=== PATIENT | female | born 1990 | race Caucasian/White ===

== ENCOUNTER 2017-11-16 16:44 | Emergency (ER) | payer MEDICAID, OTHER ==
[2017-11-16 17:02] VITALS: BP 123/85; TEMP 97.7; BMI 21.7
[2017-11-16] MEDS ORDERED: ZITHROMAX PO STA (17:35)
[2017-11-16] MEDS ORDERED: TORADOL IM STA (17:48)
--- NOTE | 2017-11-16 17:49 | ED.PDOC ---
General ED Provider: Dr. FLORA SANCHEZ Chief Complaint: Urinary Problem Stated Complaint: Patient is a 27 year old female who complains of pelvic pain and discharge. Time Seen by Physician: 17:48 Information Source: Patient Exam Limitations: No limitations Primary Care Provider: ELDER HOLLY Nursing and Triage Documentation Reviewed and Agree: Yes Does patient meet sepsis criteria?: No System Inflammatory Response Syndrome: Not Applicable Sepsis Protocol: For patient's 13 years and over: Temp is 96.8 and below OR 101 and greater Pulse >90 BPM Resp >20/minute Acutely Altered Mental Status Are patient's symptoms suggestive of a new infection, such as: -Pneumonia -Skin, Soft Tissue -Endocarditis -UTI -Bone, Joint Infection -Implantable Device -Acute Abdominal Infection -Wound Infection -Meningitis -Blood Stream Catheter Infection -Unknown 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 Complaint Exam - Vaginal Bleeding Complaint/Exam Symptoms Are: Still present Timing: Constant Character: Reports: Bright red Aggravating: Reports: None Associated Signs and Symptoms: Reports: Abdominal pain, Cramping Patient Rh Status: Unknown Vulva Exam: Present: Normal Findings Vaginal Exam: Present: Normal Findings Cervical Exam: Present: Tenderness Uterine Exam: Size WNL, Tenderness Adnexal Exam: Present: Tender Differential Diagnoses: Vaginitis Review of Systems - Review Of Systems Constitutional: Reports: No symptoms Eyes: Reports: No symptoms Ears, Nose, Mouth, Throat: Reports: No symptoms Respiratory: Reports: No symptoms Cardiac: Reports: No symptoms GI: Reports: Abdominal pain (suprapubic area ) : Reports: Dysuria, Discharge, Hematuria, Urgency Musculoskeletal: Reports: No symptoms Skin: Reports: No symptoms Neurological: Reports: Anxiety, Depressed, Emotional problems Endocrine: Reports: No symptoms Hematologic/Lymphatic: Reports: No symptoms All Other Systems: Reviewed and Negative Past Medical History - Past Medical History Previously Healthy: Yes Endocrine: Reports: None Cardiovascular: Reports: None Respiratory: Reports: Asthma Hematological: Reports: None Gastrointestinal: Reports: GERD Genitourinary: Reports: Other (PID- GC) Neuro/Psych: Reports: None Musculoskeletal: Reports: None Cancer: Reports: None Last Menstrual Period: possibly now Other Pertinent Past Medical History: PID, - Surgical History General Surgical History: Reports: (x3), Other (PE tubes, Spontenous Abortions) - Family History Family History: Reports: None - Social History Smoking Status: Never smoker Hx Substance Use: No Alcohol Screening: None Physical Exam - Physical Exam Appearance: Ill-appearing Ill-appearing: Moderate Pain Distress: Severe Eyes: EMELYN, EOMI, Conjunctiva clear ENT: Ears normal, Nose normal, Oropharynx normal Neck: Supple Respiratory: Airway patent, Breath sounds clear, Breath sounds equal, Respirations nonlabored Cardiovascular: RRR, Pulses normal, No rub, No murmur GI/: Soft, Tender Musculoskeletal: Normal strength Skin: Warm, Dry Neurological: Sensation intact, Motor intact Psychiatric: Anxious Critical Care Note - Critical Care Note Total Time (mins): 0 Course - Course Orders, Labs, Meds: Lab Review 11/16/17 11/16/17 11/16/17 17:15 17:15 17:45 Urine Color Yellow Urine Clarity Cloudy Urine pH 6.0 Ur Specific [place] >=1.030 Urine Protein 2+ Urine Glucose (UA) Negative Urine Ketones Trace Urine Blood 3+ Urine Nitrite Negative Urine Bilirubin Negative Urine Urobilinogen 0.2 Ur Leukocyte Esterase 3+ Urine Microscopic RBC 10-20 Urine Microscopic WBC 20-30 Ur Squamous Epith Cells 20-30 Urine Bacteria 1+ Urine Test Negative Clue Cells (Wet Prep) None seen Trichomonas (Wet Prep) None seen Vaginal WBC None seen VELMA Preparation 11/16/17 17:45 Urine Color Urine Clarity Urine pH Ur Specific [place] Urine Protein Urine Glucose (UA) Urine Ketones Urine Blood Urine Nitrite Urine Bilirubin Urine Urobilinogen Ur Leukocyte Esterase Urine Microscopic RBC Urine Microscopic WBC Ur Squamous Epith Cells Urine Bacteria Urine Test Clue Cells (Wet Prep) Trichomonas (Wet Prep) Vaginal WBC VELMA Preparation No fungal elements Orders Category Date Time Status CHLAMYDIA/GC AMPLIFICATION Stat LAB 11/16/17 18:06 Received GENITAL CULTURE Stat LAB 11/16/17 17:45 Received VELMA PREP Stat LAB 11/16/17 17:45 Completed URINALYSIS C & S IF INDICATED Stat LAB 11/16/17 17:15 Completed URINE CULTURE Stat LAB 11/16/17 17:15 Completed URINE Stat LAB 11/16/17 17:15 Completed VIRAL CULTURE Stat LAB 11/16/17 18:06 Received WET PREP Stat LAB 11/16/17 17:45 Completed Azithromycin [Zithromax] MEDS 11/16/17 17:35 Discontinued 1,000 mg PO ONCE STA Ketorolac Tromethamine [Toradol] MEDS 11/16/17 17:48 Discontinued 60 mg IM ONCE STA Ondansetron [Zofran Odt] MEDS 11/16/17 18:04 Discontinued 4 mg PO ONCE STA Sulfamethoxazole/Trimethoprim [Bactrim Ds 800/160 mg] MEDS 11/16/17 18:46 Discontinued 1 tab PO ONCE STA Medications Discontinued Medications Generic Name Dose Route Start Last Admin Trade Name Freq PRN Reason Stop Dose Admin Azithromycin 1,000 mg 11/16/17 17:35 11/16/17 18:21 Zithromax PO 11/16/17 17:36 1,000 mg ONCE STA Administration Ketorolac Tromethamine 60 mg 11/16/17 17:48 11/16/17 18:18 Toradol IM 11/16/17 17:49 60 mg ONCE STA Administration Ondansetron HCl 4 mg 11/16/17 18:04 11/16/17 18:22 Zofran Odt PO 11/16/17 18:05 4 mg ONCE STA Administration Trimethoprim/Sulfamethoxazole 1 tab 11/16/17 18:46 11/16/17 19:05 Bactrim Ds 800/160 Mg PO 11/16/17 18:47 1 tab ONCE STA Administration Vital Signs: Temp Pulse Resp BP Pulse Ox 11/16/17 16:53 97.7 F 84 20 123/85 98 Departure - Departure Time of Disposition: 18:51 Disposition: HOME SELF-CARE Discharge Problem: Urinary symptoms, PID (acute pelvic inflammatory disease) Instructions: Pelvic Inflammatory Disease (ED), Urinary Tract Infection in Women (ED) Condition: Stable Pt referred to PMD for follow-up: Yes IPMP verified?: No Additional Instructions: Take medications as prescribed. Follow up with PCP in 3 days Prescriptions: Sulfamethoxazole/Trimethoprim [Bactrim Ds 800/160 mg] 1 tab PO Q12HR #20 tablet Ondansetron HCl [Zofran Tab] 4 mg PO Q8H PRN #14 tablet PRN Reason: Nausea / Vomiting Tramadol HCl [Ultram] 50 mg PO Q6H PRN #14 tablet PRN Reason: Severe Pain Allergies/Adverse Reactions: Allergies Cephalosporins Adverse Reaction (Verified 11/16/17 17:03) Swelling Home Medications: Ambulatory Orders Ondansetron HCl [Zofran Tab] 4 mg PO Q8H PRN #14 tablet 11/16/17 Sulfamethoxazole/Trimethoprim [Bactrim Ds 800/160 mg] 1 tab PO Q12HR #20 tablet 11/16/17 Tramadol HCl [Ultram] 50 mg PO Q6H PRN #14 tablet 11/16/17 Disposition Discussed With: Patient, Family
[2017-11-16] MEDS ORDERED: ZOFRAN ODT PO STA (18:04)
[2017-11-16] MEDS ORDERED: BACTRIM DS 800/160 MG PO STA (18:46)
== END 2017-11-16 19:11 | disposition home or self-care (01) ==
LOC: ED 16:44
DX: N73.9 Female pelvic inflammatory disease, unspecified (principal)
CPT/HCPCS: 36415; 81001; 81025; 87070; 87086; 87210; 87252; 87800; 96372; 99283

== ENCOUNTER 2018-02-17 15:04 | Emergency (ER) | payer MEDICAID, OTHER ==
[2018-02-17 15:10] VITALS: BP 125/86; TEMP 97.9
[2018-02-17] MEDS ORDERED: DECADRON 4 MG/ML SDV IM STA (15:22)
[2018-02-17] MEDS ORDERED: BENADRYL IM STA (15:22)
--- NOTE | 2018-02-17 15:26 | ED.PDOC ---
General ED Provider: Dr. LATONYA TAYLOR Chief Complaint: Eye Problem Stated Complaint: bilateral eye irritation Time Seen by Physician: 15:00 (LAZARO PRESENT AT ALL TIMES (SEE PHOTOS)) Mode of Arrival: Walk-In Information Source: Patient Exam Limitations: No limitations Primary Care Provider: ELDER HOLLY Nursing and Triage Documentation Reviewed and Agree: Yes Does patient meet sepsis criteria?: No System Inflammatory Response Syndrome: Not Applicable (THIS ITCHING AND DRYNESS IS WITH SOFT TISSUE OF BOTH EYES THE VISION NOT INVOLVED ) Sepsis Protocol: For patient's 13 years and over: Temp is 96.8 and below OR 101 and greater Pulse >90 BPM Resp >20/minute Acutely Altered Mental Status Are patient's symptoms suggestive of a new infection, such as: -Pneumonia -Skin, Soft Tissue -Endocarditis -UTI -Bone, Joint Infection -Implantable Device -Acute Abdominal Infection -Wound Infection -Meningitis -Blood Stream Catheter Infection -Unknown EENT Complaint Exam - Eye Complaint/Exam Onset/Duration: 3 DAYS Timing: Constant Initial Severity: Mild Current Severity: Mild Location: Right, Left Character: Denies: Sharp, Dull, Throbbing, Foreign body sensation Aggravating: Reports: None Alleviating: Reports: None Associated Signs and Symptoms: Reports: Swelling (OF THE UPPER LOWER LIDS ). Denies: Photophobia, Clear drainage, Purulent drainage, Vision impairment, Fever Eye Surgical History: Reports: None Penetrating Injury Risk Factors: None Globe Rupture Risk Factors: None Acute Glaucoma Risk Factors: None Optic Artery Occlusion Risk Factors: None Visual Field: Normal Extraocular Movement: Normal Orbit Findings: Normal Globe Findings: Intact Lid Findings: Erythema ( SEE PHOTOS) Corneal Findings: Clear Differential Diagnoses: Periorbital Cellulitis (ALLERGY) Review of Systems - Review Of Systems Constitutional: Reports: No symptoms Eyes: Reports: Inflammation (OF THE R,L ORIBTAL SOFT TISSUE) Ears, Nose, Mouth, Throat: Reports: No symptoms Respiratory: Reports: No symptoms Cardiac: Reports: No symptoms GI: Reports: No symptoms : Reports: No symptoms Musculoskeletal: Reports: No symptoms Skin: Reports: No symptoms Neurological: Reports: No symptoms Endocrine: Reports: No symptoms Hematologic/Lymphatic: Reports: No symptoms All Other Systems: Reviewed and Negative Past Medical History - Past Medical History Previously Healthy: Yes Endocrine: Reports: None Cardiovascular: Reports: None Respiratory: Reports: Asthma Hematological: Reports: None Gastrointestinal: Reports: GERD Genitourinary: Reports: Other (PID- GC) Neuro/Psych: Reports: None Musculoskeletal: Reports: None Cancer: Reports: None Last Menstrual Period: last month Other Pertinent Past Medical History: PID, - Surgical History General Surgical History: Reports: (x3), Other (PE tubes, Spontenous Abortions) - Family History Family History: Reports: None - Social History Smoking Status: Never smoker Hx Substance Use: No Alcohol Screening: None - Immunizations Tetanus Shot up to Date: Yes Physical Exam - Physical Exam Appearance: Well-appearing, No pain distress, Well-nourished Eyes: EMELYN, EOMI, Conjunctiva clear (TE UPPER LOWER LID ECZEMA NOTED EVIDENCED IN THE PHOTOS) ENT: Ears normal, Nose normal, Oropharynx normal Respiratory: Airway patent, Breath sounds clear, Breath sounds equal, Respirations nonlabored Cardiovascular: RRR, Pulses normal, No rub, No murmur GI/: Soft, Nontender, No masses, Bowel sounds normal, No Organomegaly Musculoskeletal: Normal strength, ROM intact, No edema, No calf tenderness Skin: Warm, Dry, Normal color Neurological: Sensation intact, Motor intact, Reflexes intact, Cranial nerves intact, Alert, Oriented Psychiatric: Affect appropriate, Mood appropriate Critical Care Note - Critical Care Note Total Time (mins): 0 Course - Course Orders, Labs, Meds: Orders Category Date Time Status Dexamethasone 4 mg/ml Inj [Decadron 4 mg/ml Sdv] MEDS 02/17/18 15:22 Stat 8 mg IM ONCE STA Diphenhydramine Inj [Benadryl] MEDS 02/17/18 15:22 Stat 25 mg IM ONCE STA Medications Discontinued Medications Generic Name Dose Route Start Last Admin Trade Name Danielle PRN Reason Stop Dose Admin Dexamethasone Sodium Phosphate 8 mg 02/17/18 15:22 Decadron 4 Mg/Ml Sdv IM 02/17/18 15:23 ONCE STA Diphenhydramine HCl 25 mg 02/17/18 15:22 Benadryl IM 02/17/18 15:23 ONCE STA Vital Signs: Temp Pulse Resp BP Pulse Ox 02/17/18 15:05 97.9 F 92 H 16 125/86 99 Departure - Departure Time of Disposition: 15:28 Disposition: HOME SELF-CARE 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
== END 2018-02-17 15:51 | disposition home or self-care (01) ==
LOC: ED 15:04
DX: H02.403 Unspecified ptosis of bilateral eyelids (principal)
CPT/HCPCS: 96372; 99282

== ENCOUNTER 2018-06-06 04:58 | Emergency (ER) ==
[2018-06-06 05:10] VITALS: BP 123/79; TEMP 97.8; BMI 22.4
[2018-06-06 05:35] LABS: URINE PREGNANCY TEST NEGATIVE (NEGATIVE)
--- NOTE | 2018-06-06 05:36 | ED.PDOC ---
General Stated Complaint: Patient is a 27 year old female who comes to the ER with Epigastric pain/dyspepsia pain. She also states she has had no period for four months but has had spotting and nauea. Denies any vomiting. Admits to smoking weed for Nausea. Time Seen by Physician: 05:10 Mode of Arrival: Walk-In Information Source: Patient Nursing and Triage Documentation Reviewed and Agree: Yes Does patient meet sepsis criteria?: No System Inflammatory Response Syndrome: Not Applicable <FLORA SANCHEZ - Last Filed: 06/06/18 06:47> <REA MCLEOD - Last Filed: 06/06/18 09:23> ED Provider: Dr. REA MCLEOD Chief Complaint: Nausea/Vomiting Sepsis Protocol: For patient's 13 years and over: Temp is 96.8 and below OR 101 and greater Pulse >90 BPM Resp >20/minute Acutely Altered Mental Status Are patient's symptoms suggestive of a new infection, such as: -Pneumonia -Skin, Soft Tissue -Endocarditis -UTI -Bone, Joint Infection -Implantable Device -Acute Abdominal Infection -Wound Infection -Meningitis -Blood Stream Catheter Infection -Unknown GI Complaint Exam - Abdominal Pain Complaint/Exam Onset: Gradual Duration: 1 day Symptoms Are: Still present Timing: Constant Initial Severity: Severe Current Severity: Severe Location of Pain: Epigastric Character: Reports: Aching, Cramping Aggravating: Reports: Food Alleviating: Reports: None Associated Signs and Symptoms: Reports: Nausea. Denies: Vomiting, Diarrhea : 6 Para: 3 Hx Total # of Abortions (Spontaneous & Elective): 2 AAA Risk Factors: Reports: None Cardiac Risk Factors: Reports: None <REA MCLEOD - Last Filed: 06/06/18 09:23> Review of Systems - Review Of Systems Constitutional: Reports: No symptoms Eyes: Reports: No symptoms Ears, Nose, Mouth, Throat: Reports: No symptoms Respiratory: Reports: No symptoms Cardiac: Reports: No symptoms GI: Reports: Abdominal pain, Nausea : Reports: Other (Amenorrea with occasional Spotting ) Musculoskeletal: Reports: No symptoms Skin: Reports: No symptoms Neurological: Reports: Anxiety Endocrine: Reports: No symptoms Hematologic/Lymphatic: Reports: No symptoms All Other Systems: Reviewed and Negative <FLORA SANCHEZ - Last Filed: 06/06/18 06:47> Past Medical History - Past Medical History Previously Healthy: Yes Endocrine: Reports: None Cardiovascular: Reports: None Respiratory: Reports: Asthma Hematological: Reports: None Gastrointestinal: Reports: GERD Genitourinary: Reports: Other (PID- GC) Neuro/Psych: Reports: None Musculoskeletal: Reports: None Cancer: Reports: None Last Menstrual Period: JAN 2018 Other Pertinent Past Medical History: PID, - Surgical History General Surgical History: Reports: (x3), Other (PE tubes, Spontenous Abortions) - Family History Family History: Reports: None - Social History Smoking Status: Current every day smoker, Light tobacco smoker Hx Substance Use: Yes (ALCOHOL AND SUBSTANCE IN THE PAST) Alcohol Screening: Occasionally - Immunizations Tetanus Shot up to Date: No <FLORA SANCHEZ - Last Filed: 06/06/18 06:47> Physical Exam - Physical Exam Appearance: Ill-appearing Ill-appearing: Mild Pain Distress: Mild Neck: Supple Respiratory: Airway patent, Breath sounds clear, Breath sounds equal, Respirations nonlabored Cardiovascular: RRR GI/: Soft, Nontender, No masses, Bowel sounds normal, No Organomegaly Musculoskeletal: Normal strength Skin: Warm Neurological: Alert, Oriented Psychiatric: Anxious <FLORA SANCHEZ Last Filed: 06/06/18 06:47> Interpretation - Radiology Interpretation Radiology Interpretation By: Radiologist (right adnexa/ovarian cyst presunably.No acute inflammatory findings.) Exam Interpreted: CT Scan <REA MCLEOD - Last Filed: 06/06/18 09:23> Re-Evaluation - Re-Evaluation Time of Re-Evaluation: 07:03 Status: Improved Additional Comments: patient focusing her conplaiunts on discomfort in left ear and temporoocci <REA MCLEOD - Last Filed: 06/06/18 09:23> Critical Care Note - Critical Care Note Total Time (mins): 0 <FLORA SANCHEZ Last Filed: 06/06/18 06:47> Course <FLORA SANCHEZ Last Filed: 06/06/18 06:47> - Course Hematology/Chemistry: 06/06/18 06:45 06/06/18 06:45 <REA MCLEOD - Last Filed: 02/01/19 09:23> - Course Orders, Labs, Meds: Lab Review 06/06/18 06/06/18 06/06/18 05:25 05:25 06:45 WBC 12.00 H RBC 4.03 L Hgb 11.6 L Hct 36.1 L MCV 89.6 MCH 28.8 MCHC 32.1 RDW Coeff of Marguer[place] 14.2 Plt Count 327 Immature Gran % (Auto) 0.6 Neut % (Auto) 68.7 Lymph % (Auto) 23.8 [place] % (Auto) 4.7 Eos % (Auto) 1.8 Baso % (Auto) 0.4 Immature Gran # (Auto) 0.1 Neut # (Auto) 8.3 H Lymph # (Auto) 2.9 [place] # (Auto) 0.6 Eos # (Auto) 0.2 Baso # (Auto) 0.1 Sodium Potassium Chloride Carbon Dioxide Anion Gap BUN Creatinine Estimated GFR (MDRD) BUN/Creatinine Ratio Glucose Lactic Acid Calcium Total Bilirubin AST ALT Alkaline Phosphatase Total Protein Albumin Globulin Albumin/Globulin Ratio Amylase Lipase Urine Color Yellow Urine Clarity Clear Urine pH 8.5 Ur Specific [place] 1.015 Urine Protein Negative Urine Glucose (UA) Negative Urine Ketones Negative Urine Blood Negative Urine Nitrite Negative Urine Bilirubin Negative Urine Urobilinogen 0.2 Ur Leukocyte Esterase Trace Urine Microscopic WBC 2-5 Ur Squamous Epith Cells 2-5 Hyaline Casts 0-2 Urine Test Negative 06/06/18 06/06/18 06:45 07:25 WBC RBC Hgb Hct MCV MCH MCHC RDW Coeff of Marguerite Plt Count Immature Gran % (Auto) Neut % (Auto) Lymph % (Auto) [place] % (Auto) Eos % (Auto) Baso % (Auto) Immature Gran # (Auto) Neut # (Auto) Lymph # (Auto) [place] # (Auto) Eos # (Auto) Baso # (Auto) Sodium 139.7 Potassium 4.58 Chloride 103.5 Carbon Dioxide 25.8 Anion Gap 14.98 BUN 8.5 Creatinine 0.55 L Estimated GFR (MDRD) 133.00 BUN/Creatinine Ratio 15.45 Glucose 90.2 Lactic Acid 2.23 H Calcium 9.46 Total Bilirubin < 0.10 L AST 26.2 ALT 14.2 Alkaline Phosphatase 71.8 Total Protein 7.13 Albumin 4.08 Globulin 3.05 Albumin/Globulin Ratio 1.33 Amylase 70.5 Lipase 215.0 Urine Color Urine Clarity Urine pH Ur Specific [place] Urine Protein Urine Glucose (UA) Urine Ketones Urine Blood Urine Nitrite Urine Bilirubin Urine Urobilinogen Ur Leukocyte Esterase Urine Microscopic WBC Ur Squamous Epith Cells Hyaline Casts Urine Test Orders Category Date Time Status AMYLASE Stat LAB 06/06/18 06:45 Completed CBC W/ AUTO DIFF Stat LAB 06/06/18 06:45 Completed COMPREHENSIVE METABOLIC PANEL Stat LAB 06/06/18 06:45 Completed LACTIC ACID Stat LAB 06/06/18 07:25 Completed LIPASE Stat LAB 06/06/18 06:45 Completed URINALYSIS C & S IF INDICATED Stat LAB 06/06/18 05:25 Completed URINALYSIS C & S IF INDICATED Stat LAB 06/06/18 06:39 Uncollected URINE Stat LAB 06/06/18 05:25 Completed Famotidine [Pepcid] MEDS 06/06/18 06:14 Discontinued 20 mg PO ONCE STA Hydromorphone HCl [Dilaudid 1 mg/ml Syringe] MEDS 06/06/18 06:44 Discontinued 1 mg IVP ONCE STA Ketorolac Tromethamine [Toradol] MEDS 06/06/18 08:48 Discontinued 30 mg IVP ONCE STA Mag-Al Plus//Lidocaine [Gi Cocktail] MEDS 06/06/18 05:57 Discontinued 30 ml PO ONCE STA Ondansetron HCl/Pf [Zofran 4 mg/2 ml] MEDS 06/06/18 06:44 Discontinued 4 mg IVP ONCE STA Pantoprazole Sodium [Protonix IV] MEDS 06/06/18 06:39 Discontinued 40 mg IVP ONCE STA Ringers Lactated Solution [Lactated Ringers] 1,000 ml MEDS 06/06/18 06:[address] ABD/PEL WO RENAL STONE PROT Stat RADS 06/06/18 06:39 Completed Medications Discontinued Medications Generic Name Dose Route Start Last Admin Trade Name Freq PRN Reason Stop Dose Admin Al Hydroxide/Mg Hydroxide 30 ml 06/06/18 05:57 06/06/18 06:01 Gi Cocktail PO 06/06/18 05:58 30 ml ONCE STA Administration Famotidine 20 mg 06/06/18 06:14 06/06/18 06:19 Pepcid PO 06/06/18 06:15 20 mg ONCE STA Administration Hydromorphone HCl 1 mg 06/06/18 06:44 06/06/18 07:19 Dilaudid 1 Mg/Ml Syringe IVP 06/06/18 06:45 1 mg ONCE STA Administration Lactated Ringer's 1,000 mls @ 1,000 mls/hr 06/06/18 06:39 06/06/18 07:18 Lactated Ringers IV 06/06/18 07:38 1,000 mls/hr BOLUS STA Administration Ketorolac Tromethamine 30 mg 06/06/18 08:48 06/06/18 08:59 Toradol IVP 06/06/18 08:49 30 mg ONCE STA Administration Ondansetron HCl 4 mg 06/06/18 06:44 06/06/18 07:16 Zofran 4 Mg/2 Ml IVP 06/06/18 06:45 4 mg ONCE STA Administration Pantoprazole Sodium 40 mg 06/06/18 06:39 06/06/18 07:17 Protonix Iv IVP 06/06/18 06:40 40 mg ONCE STA Administration Vital Signs: Temp Pulse Resp BP Pulse Ox 06/06/18 04:58 97.8 F 95 H 20 123/79 99 Departure <FLORA SANCHEZ - Last Filed: 06/06/18 06:47> - Departure Time of Disposition: 09:20 Pt referred to PMD for follow-up: No (patient adviced to follow with PCP 2 days. -of her choice) IPMP verified?: No Pt. Stabilized Within Hospital's Capabilities/Transferred To: yes Transfer Form Completed: No Disposition Discussed With: Patient (follow up with PCP of her choice and diet discussed.CT and lab explained to the pt.) <REA MCLEOD - Last Filed: 06/06/18 09:23> - Departure Disposition: HOME SELF-CARE Discharge Problem: Nausea Instructions: Abdominal Pain (ED) Condition: Good Additional Instructions: Maintain a blan diet for 2 dfays.Than advance gradually, Allergies/Adverse Reactions: Allergies Cephalosporins Adverse Reaction (Verified 04/14/18 07:15) Swelling erythromycin base Adverse Reaction (Verified 06/06/18 05:10) Home Medications: Ambulatory Orders 1 [No Reported Medications] 02/17/18
[2018-06-06] MEDS ORDERED: GI COCKTAIL PO STA (05:57)
[2018-06-06] MEDS ORDERED: PEPCID PO STA (06:14)
[2018-06-06] MEDS ORDERED: LACTATED RINGERS 1,000 ML IV STA (06:39)
[2018-06-06] MEDS ORDERED: PROTONIX IV IVP STA (06:39)
[2018-06-06] MEDS ORDERED: ZOFRAN 4 MG/2 ML IVP STA (06:44)
[2018-06-06] MEDS ORDERED: DILAUDID 1 MG/ML SYRINGE IVP STA (06:44)
--- NOTE | 2018-06-06 07:16 | CT ---
Exam: CT abdomen pelvis without intravenous contrast. Comparison: Ultrasound performed 03/28/2018. Reason for exam: Epigastric pain. FINDINGS: Image interpretation is limited by the lack of intravenous contrast. No pleural effusion, or focal consolidation in the partially imaged lung bases. The liver, spleen, adrenal glands and pancreas appear grossly unremarkable within limitations of a no ncontrasted study. No hydronephrosis, hydroureter or nephrolithiasis in either kidney. The bladder is dilated and filled with urine. No focal bowel dilatation or transition point is seen. The appendix is unremarkable. There is a moderate amount of retained food products seen within the stomach with fluid-filled loops of small bowel. There is a moderate amount of stool seen within the colon and rectal vault. Hypodensity adjacent to the uterus in the right jeremy pelvis is presumably an adnexal/ovarian cyst. No suspicious appearing osteoblastic or osteolytic lesions. Impression: 1. Moderate amount of retained food product within the stomach with fluid-filled loops of small radha l. Imaging findings may be physiologic from recent orally intake, but may also represent gastroenter itis. Recommend clinical correlation. 2. No acute inflammatory findings are seen within the abdomen or pelvis. 3. Hypodensity in the right jeremy pelvis presumably adnexal/ovarian cyst
[2018-06-06] MEDS ORDERED: TORADOL IVP STA (08:48)
== END 2018-06-06 09:20 | disposition home or self-care (01) ==
LOC: ED 04:58
DX: R11.0 Nausea (principal); R10.13 Epigastric pain; N91.2 Amenorrhea, unspecified; F17.210 Nicotine dependence, cigarettes, uncomplicated
CPT/HCPCS: 36415; 74176; 80053; 81001; 81025; 82150; 83605; 83690; 85025; 96361; 96374; 96375; 99283

== ENCOUNTER 2018-06-07 04:28 | Emergency (ER) ==
[2018-06-07 04:42] VITALS: BP 128/84; TEMP 98.3; BMI 22.3
[2018-06-07] MEDS ORDERED: PHENERGAN 25 MG/ML VIAL IM STA (04:56)
[2018-06-07] MEDS ORDERED: DILAUDID 1 MG/ML SYRINGE IM STA (04:56)
[2018-06-07 05:18] LABS: URINE PREGNANCY TEST NEGATIVE (NEGATIVE)
--- NOTE | 2018-06-07 06:10 | ED.PDOC ---
General ED Provider: Dr. NICHOLE COON-ER Chief Complaint: Abdominal Pain Stated Complaint: was seen here today with same complaints--noted left sided abd pain Time Seen by Physician: 04:30 Mode of Arrival: Walk-In Information Source: Patient Exam Limitations: No limitations Nursing and Triage Documentation Reviewed and Agree: Yes Does patient meet sepsis criteria?: No System Inflammatory Response Syndrome: Not Applicable Sepsis Protocol: For patient's 13 years and over: Temp is 96.8 and below OR 101 and greater Pulse >90 BPM Resp >20/minute Acutely Altered Mental Status Are patient's symptoms suggestive of a new infection, such as: -Pneumonia -Skin, Soft Tissue -Endocarditis -UTI -Bone, Joint Infection -Implantable Device -Acute Abdominal Infection -Wound Infection -Meningitis -Blood Stream Catheter Infection -Unknown GI Complaint Exam - Abdominal Pain Complaint/Exam Onset: Gradual Duration: several hours Symptoms Are: Still present Timing: Constant Initial Severity: Mild Current Severity: Mild Location of Pain: Discrete, LUQ, LLQ Character: Reports: Dull, Aching Aggravating: Reports: None Alleviating: Reports: Spontaneous resolution Associated Signs and Symptoms: Denies: Diaphoresis, Fever, Cough, Chest pain, Dizziness, Back pain, Constipation, Blood in stool, Dysuria, Urinary frequency, Decreased urine output, Decreased appetite, Vaginal bleeding, Vaginal discharge , Nausea, Vomiting, Diarrhea, Sore throat, Decreased activity Patient Rh Status: Unknown Abdominal Findings: Present: None Differential Diagnoses: Bowel Obstruction, Constipation, Pancreatitis, Irritable Bowel Syndrome Review of Systems - Review Of Systems Constitutional: Reports: No symptoms Eyes: Reports: No symptoms Ears, Nose, Mouth, Throat: Reports: No symptoms Respiratory: Reports: No symptoms Cardiac: Reports: No symptoms GI: Reports: Abdominal pain : Reports: No symptoms Musculoskeletal: Reports: No symptoms Skin: Reports: No symptoms Neurological: Reports: No symptoms Endocrine: Reports: No symptoms Hematologic/Lymphatic: Reports: No symptoms All Other Systems: Reviewed and Negative Past Medical History - Past Medical History Previously Healthy: Yes Endocrine: Reports: None Cardiovascular: Reports: None Respiratory: Reports: Asthma Hematological: Reports: None Gastrointestinal: Reports: GERD Genitourinary: Reports: Other (PID- GC) Neuro/Psych: Reports: None Musculoskeletal: Reports: None Cancer: Reports: None Last Menstrual Period: JAN 2018, HAD TEST HERE YESTERDAY MORNING, WAS NEGATIVE Other Pertinent Past Medical History: PID, - Surgical History General Surgical History: Reports: (x3), Other (PE tubes, Spontenous Abortions) - Family History Family History: Reports: None - Social History Smoking Status: Current every day smoker, Light tobacco smoker Hx Substance Use: Yes (ALCOHOL AND SUBSTANCE IN THE PAST) Alcohol Screening: Occasionally - Immunizations Tetanus Shot up to Date: (UNKNOWN) Physical Exam - Physical Exam Appearance: Well-appearing, No pain distress, Well-nourished Eyes: EMELYN, EOMI, Conjunctiva clear ENT: Ears normal, Nose normal, Oropharynx normal Neck: Supple Respiratory: Airway patent, Breath sounds clear, Breath sounds equal, Respirations nonlabored Cardiovascular: RRR, Pulses normal, No rub, No murmur GI/: Soft, Nontender, No masses, Bowel sounds normal, No Organomegaly Musculoskeletal: Normal strength, ROM intact, No edema, No calf tenderness Skin: Warm, Dry, Normal color Neurological: Sensation intact, Motor intact, Reflexes intact, Cranial nerves intact, Alert, Oriented Psychiatric: Affect appropriate, Mood appropriate Interpretation - Radiology Interpretation Radiology Interpretation By: Radiologist Radiology Results: Positive Exam Interpreted: CT Scan Critical Care Note - Critical Care Note Total Time (mins): 0 Course - Course Hematology/Chemistry: 06/07/18 05:05 06/07/18 05:05 Orders, Labs, Meds: Lab Review 06/07/18 06/07/18 06/07/18 04:45 04:45 05:05 WBC 10.40 H RBC 3.82 L Hgb 11.1 L Hct 34.7 L MCV 90.8 MCH 29.1 MCHC 32.0 RDW Coeff of Marguerite 14.6 Plt Count 303 Immature Gran % (Auto) 0.6 Neut % (Auto) 68.5 Lymph % (Auto) 23.2 [place] % (Auto) 5.3 Eos % (Auto) 2.0 Baso % (Auto) 0.4 Immature Gran # (Auto) 0.1 Neut # (Auto) 7.1 H Lymph # (Auto) 2.4 [place] # (Auto) 0.6 Eos # (Auto) 0.2 Baso # (Auto) 0.0 Sodium Potassium Chloride Carbon Dioxide Anion Gap BUN Creatinine Estimated GFR (MDRD) BUN/Creatinine Ratio Glucose Calcium Total Bilirubin AST ALT Alkaline Phosphatase Total Protein Albumin Globulin Albumin/Globulin Ratio Amylase Lipase Urine Color Yellow Urine Clarity Cloudy Urine pH 8.5 Ur Specific [place] 1.015 Urine Protein Negative Urine Glucose (UA) Negative Urine Ketones Negative Urine Blood Negative Urine Nitrite Negative Urine Bilirubin Negative Urine Urobilinogen 0.2 Ur Leukocyte Esterase Negative Urine Test Negative 06/07/18 05:05 WBC RBC Hgb Hct MCV MCH MCHC RDW Coeff of Marguerite Plt Count Immature Gran % (Auto) Neut % (Auto) Lymph % (Auto) [place] % (Auto) Eos % (Auto) Baso % (Auto) Immature Gran # (Auto) Neut # (Auto) Lymph # (Auto) [place] # (Auto) Eos # (Auto) Baso # (Auto) Sodium 141.2 Potassium 5.06 Chloride 100.4 Carbon Dioxide 34.1 H D Anion Gap 11.76 BUN 18.1 H Creatinine 0.75 Estimated GFR (MDRD) 93.00 BUN/Creatinine Ratio 24.13 Glucose 85.6 Calcium 9.38 Total Bilirubin 0.13 L AST 25.1 ALT 10.1 Alkaline Phosphatase 67.7 Total Protein 6.77 Albumin 3.86 Globulin 2.91 Albumin/Globulin Ratio 1.32 Amylase 54.0 Lipase 184.6 Urine Color Urine Clarity Urine pH Ur Specific [place] Urine Protein Urine Glucose (UA) Urine Ketones Urine Blood Urine Nitrite Urine Bilirubin Urine Urobilinogen Ur Leukocyte Esterase Urine Test Orders Category Date Time Status AMYLASE Stat LAB 06/07/18 05:05 Completed CBC W/ AUTO DIFF Stat LAB 06/07/18 05:05 Completed COMPREHENSIVE METABOLIC PANEL Stat LAB 06/07/18 05:05 Completed LIPASE Stat LAB 06/07/18 05:05 Completed URINALYSIS C & S IF INDICATED Stat LAB 06/07/18 04:45 Completed URINE Stat LAB 06/07/18 04:45 Completed Hydromorphone HCl [Dilaudid 1 mg/ml Syringe] MEDS 06/07/18 04:56 Discontinued 1 mg IM ONCE STA Promethazine HCl [Phenergan 25 mg/ml Vial] MEDS 06/07/18 04:56 Discontinued 25 mg IM ONCE STA CT ABDOMEN/PELVIS WO CONTRAST Stat RADS 06/07/18 04:55 Completed Medications Discontinued Medications Generic Name Dose Route Start Last Admin Trade Name Freq PRN Reason Stop Dose Admin Hydromorphone HCl 1 mg 06/07/18 04:56 06/07/18 05:49 Dilaudid 1 Mg/Ml Syringe IM 06/07/18 04:57 1 mg ONCE STA Administration Promethazine HCl 25 mg 06/07/18 04:56 06/07/18 05:47 Phenergan 25 Mg/Ml Vial IM 06/07/18 04:57 25 mg ONCE STA Administration Vital Signs: Temp Pulse Resp BP Pulse Ox 06/07/18 04:29 98.3 F 103 H 18 128/84 99 Departure - Departure Time of Disposition: 06:14 Disposition: HOME SELF-CARE Discharge Problem: Constipation Qualifiers: Constipation type: unspecified constipation type Qualified Code(s): K59.00 - Constipation, unspecified Instructions: Constipation (ED), High Fiber Diet (ED), Obstipation (ED) Condition: Good Pt referred to PMD for follow-up: Yes IPMP verified?: No Additional Instructions: mag citrate one bottle followed by dulcolax supp x 1--f/u with pcsp Allergies/Adverse Reactions: Allergies Cephalosporins Adverse Reaction (Verified 06/07/18 04:42) Swelling erythromycin base Adverse Reaction (Verified 06/07/18 04:42) Home Medications: Ambulatory Orders 1 [No Reported Medications] 02/17/18 Disposition Discussed With: Patient
--- NOTE | 2018-06-07 06:11 | CT ---
EXAM: CT abdomen pelvis without intravenous contrast 06/07/2018. Sagittal and coronal reformatted i mages obtained HISTORY: Abdominal pain COMPARISON: 06/06/2018 FINDINGS: Technically limited examination due to the lack of intravenous contrast. The liver shows no acute abnormality. The gallbladder is contracted. The adrenal glands and kidneys show no acute abnormality. The spleen and pancreas show no gross abnormality. The pancreas is not well visualized due to lack of intravenous contrast. The stomach is distended with gastric contents. Ileus/delayed gastric emptying not excluded. This c ould be physiologic. No evidence of small bowel obstruction. Large quantity of stool throughout the colon may represent constipation/ileus. Normal appendix. Sma ll quantity of free fluid the pelvis. IMPRESSION: 1. Technically limited examination due to the lack of intravenous contrast. 2. The current study appears similar to CT performed 06/06/2018. There is no urinary or bowel obstr uction. The appendix is normal. 3. Distended stomach with gastric contents. This is nonspecific. This could be physiologic. Delay ed gastric emptying is not excluded. 4. Large quantity of stool throughout the colon suggesting constipation. Correlate for possible ile us. 5. Small quantity of free fluid within the pelvis.
== END 2018-06-07 08:25 | disposition home or self-care (01) ==
LOC: ED 04:28
DX: K59.00 Constipation, unspecified (principal); F17.210 Nicotine dependence, cigarettes, uncomplicated
CPT/HCPCS: 36415; 80053; 81001; 81025; 82150; 83690; 85025; 96372; 99283

== ENCOUNTER 2018-08-04 12:08 | Emergency (ER) | payer MEDICAID, OTHER ==
[2018-08-04 12:20] VITALS: BP 128/80; TEMP 98; BMI 21.7
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
== END 2018-08-04 14:40 ==
LOC: ED 12:08
DX: L03.211 Cellulitis of face (principal); L02.01 Cutaneous abscess of face; S00.252A Superficial foreign body of left eyelid and periocular area, initial encounter; S60.455A Superficial foreign body of left ring finger, initial encounter; S60.454A Superficial foreign body of right ring finger, initial encounter; F17.210 Nicotine dependence, cigarettes, uncomplicated
CPT/HCPCS: 36415; 84703; 99282